=== PATIENT | female | born 1970 | race Asian ===

== ENCOUNTER 2017-01-20 14:39 | Emergency (ER) | payer OTHER ==
--- NOTE | ~2017-01-20 | CT71 ---
[facility] A Service of [facility] RADIOLOGY TEXT RESULTS PATIENT: COLEEN GONZALEZ LOCATION: [facility] : 72 UNIT #: [id number] AGE: [address]: Herbert Anderson MD SEX: F ORDER DR: [id number] [facility] [address] [place], [place] [address] [id number] E MR#: [id number] Acc #: [id number] NAME: COLEEN GONZALEZ : 1970 SEX: F STUDY DATE/TIME: 01/20/2017 15:53 UNIT: [facility] ROOM: STUDY DESCRIPTION: CT Head Wo Contrast Attending Physician: Herbert Anderson M.D. Referring Physician: Dipti Nova M.D. Ordering Physician: Herbert Anderson M.D. Primary Care Physician: Dipti Nova M.D. MEDICAL IMAGING REPORT This report is preliminary unless electronic signature is present EXAM CT head. DATE OF EXAM 01/20/2017 HISTORY Nosebleed x2 hours. Hypertension, diabetes. TECHNIQUE CT head performed skull base through vertex without intravenous contrast. NOTE: This CT exam was performed with one or more of the following radiation dose reduction techniques: automatic exposure control, adjustment of mA and/or kV according to patient size, and iterative reconstruction. COMPARISON 02/24/2011 FINDINGS The brainstem is unremarkable. The cerebellum and cerebral hemispheres show normal ortiz matter - white matter differentiation. No intracranial hemorrhage. No evidence of acute cortical ischemia. Some images degraded by streak/motion artifact. The midline structures are nondisplaced. The basal ganglia are intact. The ventricles, cisterns and sulci are normal in size and contour. There is no intra or extraaxial mass effect or abnormal intracranial fluid collection. The intraorbital soft tissues are unremarkable. The visualized paranasal sinuses and mastoid air cells are clear. Bony structures are unremarkable. IMPRESSION 1. Motion degraded study. Brain appears normal. If patient has ongoing neurologic symptoms, consider follow up imaging. [facility] A Service of [facility] RADIOLOGY TEXT RESULTS PATIENT: COLEEN GONZALEZ LOCATION: [facility] : 72 UNIT #: [id number] AGE: [address]: Herbert Anderson MD SEX: F ORDER DR: 2. Visualized paranasal sinuses and mastoid air cells are clear. 3. Bony structures unremarkable. Dictated by... Tim Patterson M.D. THIS IS AN ELECTRONICALLY VERIFIED REPORT Tim Patterson M.D. at 01/21/2017 5:55 PM Pierce TD: 01/20/2017 16:42 JOB #: [id number] MEDICAL IMAGING REPORT Page 1 of 1 COPY
[~2017-01-20 14:39] MED LIST: AMLODIPINE BESYL5 MG PO; CLONIDINE HCL0.1 MG PO; DEXILANT60 MG PO; FERRO-TIME325 MG PO; FERROUS SULFATE1 TAB PO; GLUCOTROL XL PO; KEFLEX PO; LEVAQUIN PO; LORTAB 5/500 TA1 TA1 PO; METFORMIN HCL500 M1 PO; NORVASC PO; TYLENOL325 M1 PO; VICODIN 5/500 T1 TAB PO
== END 2017-01-20 17:16 | disposition home or self-care (01) ==
LOC: CED 14:39
DX: R04.0 Epistaxis (principal); I10 Essential (primary) hypertension; E11.9 Type 2 diabetes mellitus without complications; Z88.5 Allergy status to narcotic agent
CPT/HCPCS: 70450; 84703; 99283